=== PATIENT | female | born 2000 | race Caucasian/White ===

== ENCOUNTER 2025-05-12 13:57 | Outpatient (AMB) | payer BC, SELFPAY ==
[2025-05-12 14:11] VITALS: BP 134/94; PULSE 101; RESP 18; TEMP 36.2; O2SAT 98; BMI 45.6
--- NOTE | 2025-05-12 14:11 | OBCLNT_ITS ---
Vital Signs 05/12/25 14:11 Height 1.65 m Height Method Stated Weight 124.511 kg Weight Measurement Method Standing Scale BMI 45.6 BP 134/94 H Blood Pressure Source Automatic Cuff Blood Pressure Location Left Upper Arm Position Sitting Respiration 18 Pulse 101 H Pulse Source Monitor Temp 97.2 F Temp Source Oral Pulse Oximetry (%) 98 Oxygen Delivery Method Room Air Allergies/Home Meds Allergies & Medications Allergies No Known Allergies Allergy (Verified 05/12/25 14:12) Medication Reconciliation No Known Home Medications 05/12/25 [History Confirmed 05/12/25] Intake Visit Data Collection New Patient or Established: Established Patient (seen at [facility] within 3 years) Reason for Visit:: OBC Seen by Clinical Staff ONLY (RN/MA): No Licensing Representative Required: No Do You Feel Safe at Home: Yes Authorities Contacted: N/A PCP or OBGYN visit in last 3 months: Yes Hx Now: Yes Are you currently on any form of Control: No Last menstrual period: 02/18/25 Pain Present Currently: No Pain Scale Used: Moss-Wisdom/Numerical Pain scale:: 0 Smoking Status Smoking Status: Never smoker Immunizations Flu Vaccine in the Last 12 Months: No Flu Vaccine Exclusion Criteria: No Exclusion Criteria Questionnaires Covid-19 Vaccine Questionnaire Has patient been vacinated for Covid-19 Have you been vacinated for Covid-19: No PHQ-9 PHQ-2 Over the last 2 weeks, how often have you been bothered by any of the following problems? 1. Little interest or pleasure in doing things: not at all 2. Feeling down, depressed, or hopeless: not at all Total score: 0 PHQ-9 3. Trouble falling or staying asleep, or sleeping too much: Not at all 4. Feeling tired or having little energy: Not at all 5. Poor appetite or overeating: Not at all 6. Feeling bad about yourself - or that you are a failure or have let yourself or your family down: Not at all 7. Trouble concentrating on things, such as reading the newspaper or watching television: Not at all 8. Moving or speaking so slowly that other people could have noticed? - Or the opposite - being so fidgety or restless that you have been moving around a lot more than usual: not at all 9. Thoughts that you would be better off or of hurting yourself in some way: Not at all Total score: 0 If you checked off any problems, how difficult have these problems made it for you to do your work, take care of things at home, or get along with other people?: not difficult at all Source: Developed by Drs. Cullen Long, Damaris Villarreal, Jamal Gibson and colleagues, with an educational adolfo from [employer]. Depression screen completed yes Social History Tobacco History Smoking Status: Never smoker Domestic Abuse History Do You Feel Safe at Home: Yes History of Present Illness HPI Narrative 25-year-old 1 para 0 for OBI. Patient's OB transfer from Dr. Man's office with records. Last period February 18, 2025. This gives EDC November 25, 2025. Unsure dates. Patient has chronic hypertension. She is taking labetalol 100 p.o. twice daily. Her blood pressures at home 120s over 80s and she monitors them. No other medical history noted. Denies social habits. Denies surgeries. Patient and partner are happy about the . NIPT screen was negative. Hemoglobin there was 12/hematocrit 40. Platelets 466. Urine screen was negative. And patient had a drug screen that was negative as well. Hepatitis A was negative. Hepatitis B was negative. Hep C negative. GC and Chlamydia were negative. Patient is AB+. MSK body screen negative. A1c was 5.0. An HIV /RPR /and rubella immune all negative.. Patient denies any SAB complaints. OB Initial Visit OB Flowsheet OB Flowsheet Initial Weight: Not Recorded Date -?-?-?-?-?-?-?-?-?-?-?-?- EGA Weight BP Alb Glu CTX Pres Fundal ht FHR Mov Dilation Station Effacement Hx Notes Visit Note 05/12/25 -?-?-?-?-?-?-?-?-?-?-?-?- 11w 6d 124.511 kg 134/94 absent unknown 12 145 absent Roberto is a 25-year-old 1 para 0 for OB I. She is a transfer from Dr. Man's office with minimal records. History of hypertension this . She is taking labetalol 100 p.o. twice daily. Her last. February 18, 2025. Estimated due date November 25, 2025. All of her labs were normal today denies SAB complaints, no bleeding no cramps NIPT with carrier screen today. Will schedule an ultrasound at [facility]. Labetalol 100 p.o. twice daily. Discussed PIH signs and symptoms. Also discussed weight gain. Patient to walk and be active. Return in 4 weeks OB check . Will schedule an ultrasou nd at [facility]. Labetalol 100 p.o. twice daily. Discussed PIH signs and symptoms. Also discussed weight gain. Patient to walk and be active. Return in 4 weeks OB check Menstrual History Menstrual reliability: definite Flow: normal Menstrual regularity: regular Monthly: Yes Age at menarche: 9 On control pills at conception: No OB History : 1 Infection History & Risk Evaluation History of STDs: none HIV risk evaluation: low risk Hepatitis B risk evaluation: low risk Patient or partner has history of Genital Herpes: No Varicella/chicken pox status: immunized Genetic Screening & History Genetic Screening/Teratology Counseling - Includes patient, baby's father, or anyone in either family with: 2. Thalassemia (Nepali, Kinyarwanda, Mediterranean, or Background); MCV less than 80: No 3. Neural Tube Defect (Meningomyelocele, Spina Bifida, or Anencephaly): No 4. Congenital Heart Defect: No 5. Down Syndrome: No 7. Meagan Disease (Ashkenazi Gnosticist): No 8. Familial Dysautonomia (Ashkenazi Gnosticist): No 9. Sickle Cell Disease or Trait (): No 10. Hemophilia or other blood disorders: No 11. Muscular Dystrophy: No 12. Cystic Fibrosis: No 13. Adelfo's Chorea: No 14. Mental Retardation/Autism: No 15. Other inherited genetic or chromosomal disorder: No 16. Maternal Metabolic Disorder (EG,TYPE 1 Diabetes, PKU): No 17. Patient or baby's father had a child with defects not listed above: No 18. Recurrent loss or a stillbirth: No 19. Medications (including supplements, vitamins, herbs or otc drugs)/illicit/recreational drugs/alcohol since last menstrual period: No 20. Any other: No Infection History 1. Live with someone with TB or exposed to TB: No 2. Rash or viral illness since last menstrual period: No 3. Hepatitis B,C: No Other (see comments) Source: [employer] Review of Systems Review of Systems Systems Reviewed: All systems reviewed, normal except as documented Exam General Limitations: no limitations General Appearance: alert, in no apparent distress, comfortable, cooperative, healthy appearing, well developed and well groomed Head Head exam: atraumatic, normocephalic and normal inspection ENT ENT exam: Present normal exam, normal oropharynx and mucous membranes moist Neck Neck exam: Present normal inspection, full ROM and trachea midline Chest Chest inspection: Present normal inspection and symmetric chest wall rise Resp Respiratory exam: Present normal lung sounds bilaterally Card Cardiovascular exam: Present regular rate, normal rhythm and normal heart sounds Abdominal Abdominal exam: Present soft and normal bowel sounds Psych Psychiatric exam: Present normal affect and normal mood Office Procedures OBC Clinic LOC & Office Proc's Nursing/Assessment Patient Status: Initial/New Patient OB Clinic Nursing Assessment: Medication Reconciliation, Update PMH in EMR and Vital Signs OB Clinic Coordination of Care: Consent,records obtained, informed consent, Education Simp Pt/Fam, Lab and Imaging orders, Results/Orders obtained and Staff clarify orders Special Needs: Heart tones New Patient Charge New Patient Point Assignment: [id number] New Patient Point Charge: [employer] Level 3 (3153-4125) Assessment & Plan Diagnosis / Problem List (1) Encounter for supervision of high risk in first trimester, antepartum: Status: Acute (2) Obese: Status: Acute Qualifiers: Obesity type: due to excess calories Plan Reviewed labs and dates. Scheduled MFM appointment with maternal- medicine. Continue labetalol 100 p.o. twice daily. Patient will monitor blood pressures at home. Discussed SAB precautions. I discussed diet and weight gain. Return in 4 weeks OB check Additional Plan Follow Up: 4 Weeks (obc)
== END 2025-05-12 14:50 | disposition home or self-care (01) ==
PROVIDERS: PCP Obstetrics & Gynecology; Referring Provider Obstetrics & Gynecology; Supervising Provider Advanced Practice Midwife; Visit Provider Advanced Practice Midwife
DX: O09.891 Supervision of other high risk pregnancies, first trimester (principal); O99.211 Obesity complicating pregnancy, first trimester; O10.911 Unspecified pre-existing hypertension complicating pregnancy, first trimester; Z3A.11 11 weeks gestation of pregnancy; Z79.899 Other long term (current) drug therapy
CPT/HCPCS: 99203; G0463

== ENCOUNTER 2025-06-12 15:22 | Outpatient (AMB) | payer BC, SELFPAY ==
[2025-06-12 15:39] VITALS: BP 129/88; PULSE 109; RESP 18; TEMP 36.8; O2SAT 98; BMI 45.8
--- NOTE | 2025-06-12 15:39 | OBCLNT_ITS ---
Vital Signs 06/12/25 15:39 Height 1.65 m Height Method Stated Weight 124.851 kg Weight Measurement Method Standing Scale BMI 45.8 BP 129/88 H Blood Pressure Source Automatic Cuff Blood Pressure Location Right Upper Arm Position Sitting Respiration 18 Pulse 109 H Pulse Source Monitor Temp 98.3 F Temp Source Temporal Artery Scan Pulse Oximetry (%) 98 Oxygen Delivery Method Room Air Allergies/Home Meds Allergies & Medications Allergies No Known Allergies Allergy (Verified 06/12/25 15:42) Medication Reconciliation labetalol 100 mg tablet 100 mg PO TID #60 tabs 05/29/25 [Rx Confirmed 06/12/25] Immunizations Immunizations Flu Vaccine in the Last 12 Months: No Flu Vaccine Exclusion Criteria: Refused by Patient Care OB Visit Log OB Flowsheet Initial Weight: Not Recorded Date -?-?-?-?-?-?-?-?-?-?-?-?- EGA Weight BP Alb Glu CTX Pres Fundal ht FHR Mov Dilation Station Effacement Hx Notes Visit Note 05/12/25 -?-?-?--?-?-?-?-?-?-?-?-?- 11w 6d 124.511 kg 134/94 absent unknown 12 145 absent Roberto is a 25-year-old 1 para 0 for OB I. She is a transfer from Dr. Man's office with minimal records. History of hypertension this . She is taking labetalol 100 p.o. twice daily. Her last. February 18, 2025. Estimated due date November 25, 2025. All of her labs were normal today denies SAB complaints, no bleeding no cramps NIPT with carrier screen today. Will schedule an ultrasound at [facility]. Labetalol 100 p.o. twice daily. Discussed PIH signs and symptoms. Also discussed weight gain. Patient to walk and be active. Return in 4 weeks OB check . Will schedule an ultrasou nd at [facility]. Labetalol 100 p.o. twice daily. Discussed PIH signs and symptoms. Also discussed weight gain. Patient to walk and be active. Return in 4 weeks OB check 06/12/25 -?-?-?-?-?-?-?-?-?-?-?-?- 16w 2d 124.851 kg 129/88 absent unknown 16 145 absent Light movement. Denies leaking, bleeding, contractions. Patient had a 8-week 2-day ultrasound April 17 at [facility]. aFP today. We also did 24-hour urine and CMP and CBC. Patient has a follow-up scheduled for [facility] July 11. And called for ultrasound results at [facility]. Return in 4 weeks OB check aFP today. We also did 24-h our urine and CMP and CBC. Patient has a follow-up scheduled for [facility] July 11. And called for ultrasound results at [facility]. Return in 4 weeks OB check. labetolol increased to 200 bid after consut with Dr Gan. Keep M appointment for July 11. Called for ultrasound results from [facility] for April 17. 24-hour urine for protein and CMP today along with AFP return in 4 weeks OB check. Discussed PIH signs symptoms GERRY Calculator Estimated Delivery Date Method Current WG Current Estimate 11/25/25 Ultrasound #1 16w 2d Other Estimates 11/25/25 LMP (Certain) 16w 2d 11/15/25 Ultrasound #2 17w 5d 11/25/25 Manual 16w 2d final gerry: 11/25 Notes Visit Date: 06/12/25 Last Updated by: Tiki Wilkins CNM [facility] sono: 05/24/25 IUP 15 week Visit Date: 05/12/25 Last Updated by: Tiki Wilkins CNM 25 yo . LMP: 03/21/25; EDC: 11/25/25. CHTN on labetolol 100 BID. OB panel: ,466UA-, ARGUETA-,HBSAG-, HIV-, HC-, G/C-, AB+, ABS-, RPR::NR, IMm, , NIPT,carrier screen-/Male Office Procedures OBC Clinic LOC & Office Proc's Nursing/Assessment Patient Status: Established Patient OB Clinic Nursing Assessment: Medication Reconciliation, Update PMH in EMR and Vital Signs OB Clinic Coordination of Care: Complex Care and Chronic Disease 1-5, Education Complex Pt/Fam, Consent,records obtained, informed consent, Lab and Imaging orders, Results/Orders obtained and Staff clarify orders Special Needs: Heart tones Established Patient Charge Established Patient Point Assignment: 140 Established Patient Point Charge: EP Level 4 (120-155) Assessment & Plan Diagnosis / Problem List (1) Hypertension affecting in first trimester: Status: Acute (2) Obese: Status: Acute Qualifiers: Obesity type: due to excess calories (3) Encounter for supervision of high risk in first trimester, antepartum: Status: Acute Plan Consult with OB regarding labetalol. labetolol increased to 200 bid. Follow-up with [facility] July 11 for ultrasound. We reviewed dates and I called for the ultrasound from [facility]. CMP, 24-hour urine protein. And AFP today. Continue baby aspirin to tabs per day. Discussed SAB precautions. And PIH signs symptoms return in 4 weeks OB. Continue to monitor blood pressures at home Additional Plan Follow Up: 4 Weeks (obc)
== END 2025-06-12 15:58 | disposition home or self-care (01) ==
LOC: HODSOBC 15:22
PROVIDERS: Supervising Provider Advanced Practice Midwife; Visit Provider Advanced Practice Midwife
DX: O09.892 Supervision of other high risk pregnancies, second trimester (principal); O10.912 Unspecified pre-existing hypertension complicating pregnancy, second trimester; O99.212 Obesity complicating pregnancy, second trimester; Z3A.16 16 weeks gestation of pregnancy; Z79.899 Other long term (current) drug therapy; Z28.21 Immunization not carried out because of patient refusal
CPT/HCPCS: 99214; G0463

== ENCOUNTER 2025-07-10 13:12 | Outpatient (AMB) | payer BC, SELFPAY ==
[2025-07-10 13:16] VITALS: BP 121/82; PULSE 96; RESP 18; TEMP 36.2; O2SAT 97; BMI 45.8
--- NOTE | 2025-07-10 13:16 | AMB.OBPNC ---
Vital Signs 07/10/25 13:16 Height 1.65 m Height Method Stated Weight 124.851 kg Weight Measurement Method Standing Scale BMI 45.8 BP 121/82 Blood Pressure Source Automatic Cuff Blood Pressure Location Left Upper Arm Position Sitting Respiration 18 Pulse 96 Pulse Source Monitor Temp 97.2 F Temp Source Oral Pulse Oximetry (%) 97 Oxygen Delivery Method Room Air Allergies/Home Meds Allergies & Medications Allergies No Known Allergies Allergy (Verified 07/10/25 13:17) Medication Reconciliation labetalol 100 mg tablet 100 mg PO TID #60 tabs 05/29/25 [Rx Confirmed 07/10/25] labetalol 200 mg tablet 200 mg PO BID 30 days #60 tabs 06/20/25 [Rx Confirmed 07/10/25] Immunizations Immunizations Flu Vaccine in the Last 12 Months: No Flu Vaccine Exclusion Criteria: Refused by Patient Care OB Visit Log OB Flowsheet Initial Weight: Not Recorded Date <del>?</del> EGA Weight BP Alb Glu CTX Pres Fundal ht FHR Mov Dilation Station Effacement Hx Notes Visit Note 05/12/25 <del>?</del> 12w 4d 124.511 kg 134/94 absent unknown 12 145 absent Roberto is a 25-year-old 1 para 0 for OB I. She is a transfer from Dr. Man's office with minimal records. History of hypertension this . She is taking labetalol 100 p.o. twice daily. Her last. February 18, 2025. Estimated due date November 25, 2025. All of her labs were normal today denies SAB complaints, no bleeding no cramps NIPT with carrier screen today. Will schedule an ultrasound at [facility]. Labetalol 100 p.o. twice daily. Discussed PIH signs and symptoms. Also discussed weight gain. Patient to walk and be active. Return in 4 weeks OB check . Will schedule an ultrasound at [facility]. Labetalol 100 p.o. twice daily. Discussed PIH signs and symptoms. Also discussed weight gain. Patient to walk and be active. Return in 4 weeks OB check 06/12/25 <del>?</del> 17w 0d 124.851 kg 129/88 absent unknown 16 145 absent Light movement. Denies leaking, bleeding, contractions. Patient had a 8-week 2-day ultrasound April 17 at [facility]. aFP today. We also did 24-hour urine and CMP and CBC. Patient has a follow-up scheduled for [facility] July 11. And called for ultrasound results at [facility]. Return in 4 weeks OB check aFP today. We also did 24-hour urine and CMP and CBC. Patient has a follow-up scheduled for [facility] July 11. And called for ultrasound results at [facility]. Return in 4 weeks OB check. labetolol increased to 200 bid after consut with Dr Gan. Keep MFM appointment for July 11. Called for ultrasound results from [facility] for April 17. 24-hour urine for protein and CMP today along with AFP return in 4 weeks OB check. Discussed PIH signs symptoms 07/10/25 <del>?</del> 21w 0d 124.851 kg 121/82 absent unknown 21 145 active Positive movement. Denies leaking, bleeding, contractions. Denies headache or PIH complaint MFM appointment tomorrow. Discussed labor precautions. Continue labetalol 200 p.o. twice daily. And return in 4 weeks OB MFM appointment tomorrow. Discussed labor precautions. Continue labetalol 200 p.o. twice daily. And return in 4 weeks OB. 3rd tri lab GERRY Calculator Estimated Delivery Date Method Current WG Current Estimate 11/20/25 Ultrasound #1 21w 0d Other Estimates 11/25/25 LMP (Certain) 20w 2d 11/15/25 Ultrasound #2 21w 5d 11/20/25 Manual 21w 0d final gerry: 11/20/25 Notes Visit Date: 07/10/25 Last Updated by: Tiki Wilkins CNM CHTN delivery at 38week, , alt/ast WNL, BUN/creatinine ratio: 14, AFP- Visit Date: 06/12/25 Last Updated by: Tiki Wilkins CNM [facility] sono: 05/24/25 IUP 15 week Visit Date: 05/12/25 Last Updated by: Tiki Yo [place], CNM 25 yo . LMP: 03/21/25; EDC: 11/25/25. CHTN on labetolol 100 BID. OB panel: ,466UA-, ARGUETA-,HBSAG-, HIV-, HC-, G/C-, AB+, ABS-, RPR::NR, IMm, , NIPT,carrier screen-/Male Office Procedures OBC Clinic LOC & Office Proc's Nursing/Assessment Patient Status: Established Patient OB Clinic Nursing Assessment: Medication Reconciliation, Update PMH in EMR and Vital Signs OB Clinic Coordination of Care: Complex Care and Chronic Disease 1-5, Consent,records obtained, informed consent, Education Simp Pt/Fam, Lab and Imaging orders, Results/Orders obtained and Staff clarify orders Special Needs: Heart tones Established Patient Charge Established Patient Point Assignment: 135 Established Patient Point Charge: EP Level 4 (120-155) Assessment & Plan Diagnosis / Problem List (1) Encounter for supervision of high risk in second trimester, antepartum: Status: Acute (2) Hypertension affecting in first trimester: Status: Acute Plan Third trimester labs. Follow-up with [facility] 1230. Discussed labor precautions. Discussed signs symptoms of PIH and reviewed them. Discussed diet and weight. Continue labetalol 200 p.o. twice daily return in 4 weeks OB to Additional Plan Follow Up: 4 Weeks (obc)
== END 2025-07-10 13:39 | disposition home or self-care (01) ==
LOC: HODSOBC 13:12
PROVIDERS: Supervising Provider Advanced Practice Midwife; Visit Provider Advanced Practice Midwife
DX: O09.892 Supervision of other high risk pregnancies, second trimester (principal); O10.912 Unspecified pre-existing hypertension complicating pregnancy, second trimester; Z3A.21 21 weeks gestation of pregnancy; Z79.899 Other long term (current) drug therapy
CPT/HCPCS: 99214; G0463